=== PATIENT | male | born 1975 | race Caucasian/White ===

== ENCOUNTER 2023-03-14 17:34 | Inpatient (IN) | payer OTHER, BC ==
[~2023-03-14 17:34] MED LIST: Iopamidol-370 76% 500 ML MDV (1 ML CHARGE) ONE
[2023-03-14] MEDS ORDERED: hydrALAZINE 20 MG/ML VIAL SLOW IVP PRN (17:44)
[2023-03-14] MEDS ORDERED: Morphine 2 MG/ML VIAL SLOW IVP PRN (17:44)
[2023-03-14] MEDS ORDERED: Sodium Chloride 0.9% 1,000 ML IV SCH (17:45)
[2023-03-14] MEDS ORDERED: traMADol HCl 50 MG TAB PO PRN (17:52)
[2023-03-14 18:04] LABS: #Basophils 0.1 thou/uL (0.0-0.2); #Eosinphils 0.1 thou/uL (0.0-0.7); #Monocytes 0.8 thou/uL (0.11-0.59); #Neutrophils 7.9 thou/uL (1.40-6.50); %Basophils 0.7 % (0.0-1.0); %Lymphocytes 14.6 % (21.0-51.0); %Monocytes 7.9 % (0.0-10.0); %Neutrophils 75.2 % (42.0-75.0); Hemoglobin 13.5 g/dL (14.0-18.0); Mean Corpuscular HGB CONC 32.8 g/dL (32.0-36.0); Mean Corpuscular Hemoglobin 27.9 pg (27.0-31.0); Mean Corpuscular Volume 85.1 fl (78.0-98.0); Mean Platelet Volume 10.1 fL (7.4-10.4); Platelet Count 191 10x3/uL (130-400); RBC Distribution Width 12.6 % (11.5-14.5); Red Blood Cell (RBC) Count 4.84 mill/uL (4.70-6.10); White Blood Cell (WBC) Count 10.5 10x3/uL (4.8-10.8)
[2023-03-14] MEDS ORDERED: Boostrix 0.5 ML (Tdap) VIAL (>/=7 yrs of age) ONE (18:06)
[2023-03-14] MEDS ORDERED: Acetaminophen 500 MG TAB PO SCH (18:15)
[2023-03-14 18:17] LABS: INR-International Normal Ratio 0.9; Prothrombin Time 12.2 sec (12.0-14.7)
[2023-03-14 18:18] LABS: PTT 21.2 sec (22.9-36.1)
[2023-03-14 18:28] LABS: ALT (SGPT) 42 U/L (8-55); AST (SGOT) 32 U/L (5-34); Albumin 4.3 g/dL (3.5-5.0); Alkaline Phosphatase 48 U/L (40-110); Anion Gap 15 mmol/L (10-20); BUN (Urea Nitrogen) 18 mg/dL (8.9-20.6); Bilirubin, Total 0.8 mg/dL (0.2-1.2); CK (CPK) 405 U/L (30-200); Calc. Creatinine Clearance 0 mL/min (70-130); Calcium 9.3 mg/dL (7.8-10.44); Carbon Dioxide 18 mmol/L (22-29); Chloride 108 mmol/L (98-107); Estimated GFR 76; Globulin 2.5 g/dL (2.4-3.5); Glucose 140 mg/dL (70-105); Potassium 3.7 mmol/L (3.5-5.1); Protein, Total 6.8 g/dL (6.0-8.3); Sodium 137 mmol/L (136-145)
[2023-03-14] MEDS ORDERED: Ondansetron PF 4 MG/2 ML Vial ONE (18:28)
[2023-03-14] MEDS ORDERED: fentaNYL 50 mcg/mL 1 mL Vial ONE ×2 (18:28)
[2023-03-14] MEDS ORDERED: Ketamine In 0.9 % NaCl 50 MG/5 ML SYRINGE ONE (19:22)
[2023-03-14] MEDS ORDERED: Ketorolac Tromethamine 30 MG/ML VIAL ONE (19:43)
[2023-03-14] MEDS: traMADol HCl 50 MG TAB PO SCH ×2 (21:34→23:28)
[2023-03-14] MEDS: Lactated Ringer's 1,000 ML IV SCH (21:36)
[2023-03-14] MEDS: Cyclobenzaprine 10 MG TAB PO PRN (21:37)
[2023-03-14] MEDS: Gabapentin 300 MG CAP PO SCH (21:37)
[2023-03-14] MEDS: Famotidine 20 MG TAB PO SCH (21:37)
[2023-03-14] MEDS: Senokot S 8.6-50 MG TAB PO SCH (21:38)
[2023-03-14 21:57] VITALS: BMI 39.5
[2023-03-14] MEDS: Morphine 4 MG/ML VIAL SLOW IVP PRN (23:25)
[2023-03-14] MEDS: Acetaminophen 500 MG TAB PO SCH (23:31)
[2023-03-15] MEDS: Lactated Ringer's 1,000 ML IV SCH ×2 (04:21→14:54)
[2023-03-15 05:28] LABS: #Eosinphils 0.1 thou/uL (0.0-0.7); #Monocytes 0.7 thou/uL (0.11-0.59); #Neutrophils 4.7 thou/uL (1.40-6.50); %Basophils 0.4 % (0.0-1.0); %Eosinophils 1.3 % (0.0-10.0); %Lymphocytes 19.7 % (21.0-51.0); %Monocytes 10.5 % (0.0-10.0); Hemoglobin 11.9 g/dL (14.0-18.0); Mean Corpuscular HGB CONC 32.3 g/dL (32.0-36.0); Mean Corpuscular Hemoglobin 27.7 pg (27.0-31.0); Mean Corpuscular Volume 85.8 fl (78.0-98.0); Platelet Count 162 10x3/uL (130-400); RBC Distribution Width 13.1 % (11.5-14.5); Red Blood Cell (RBC) Count 4.29 mill/uL (4.70-6.10)
[2023-03-15 05:43] LABS: INR-International Normal Ratio 0.9; PTT 23.7 sec (22.9-36.1); Prothrombin Time 12.7 sec (12.0-14.7)
[2023-03-15] MEDS: traMADol HCl 50 MG TAB PO SCH ×2 (05:50→14:55)
[2023-03-15] MEDS: Acetaminophen 500 MG TAB PO SCH ×2 (05:50→14:54)
[2023-03-15 06:30] LABS: Anion Gap 13 mmol/L (10-20); BUN (Urea Nitrogen) 18 mg/dL (8.9-20.6); CK (CPK) 960 U/L (30-200); Calc. Creatinine Clearance 188 mL/min (70-130); Calcium 8.5 mg/dL (7.8-10.44); Carbon Dioxide 25 mmol/L (22-29); Chloride 105 mmol/L (98-107); Estimated GFR 94; Glucose 142 mg/dL (70-105); Potassium 3.8 mmol/L (3.5-5.1); Sodium 139 mmol/L (136-145)
[2023-03-15] MEDS: Morphine 4 MG/ML VIAL SLOW IVP PRN (08:30)
[2023-03-15] MEDS: Famotidine 20 MG TAB PO SCH ×2 (08:32→20:12)
[2023-03-15] MEDS: Gabapentin 300 MG CAP PO SCH ×3 (08:32→20:12)
[2023-03-15] MEDS: Senokot S 8.6-50 MG TAB PO SCH ×2 (08:33→20:11)
[2023-03-15] MEDS: Polyethylene Glycol 3350 17 GM Packet PO SCH (08:33)
[2023-03-15] MEDS ORDERED: CEFAZOLIN 2 GM VIAL ONE (10:34)
[2023-03-15] MEDS ORDERED: Sodium Chloride 0.9% 100 ML ONE (10:34)
[2023-03-15] MEDS ORDERED: Bupivacaine HCl 0.5%/Epinephrine 1:200,000/PF 30 ml Vial ONE (10:50)
[2023-03-15] MEDS ORDERED: Famotidine/PF 20 mg/2ml Vial ONE (10:56)
[2023-03-15] MEDS ORDERED: Lidocaine 1% PF 5 ML VIAL ONE (11:10)
[2023-03-15] MEDS ORDERED: Dexamethasone 20 MG/5 ML VIAL ONE (11:10)
[2023-03-15] MEDS ORDERED: PHENYLEPHRINE-NS 100 MCG/ML 10 ML SYRINGE ONE (11:10)
[2023-03-15] MEDS ORDERED: Rocuronium Bromide 10 MG/ML (10ML VIAL) ONE ×2 (11:10)
[2023-03-15] MEDS ORDERED: PROPOFOL 200 MG/20 ML VIAL ONE (11:10)
[2023-03-15] MEDS ORDERED: HYDROmorphone 2 MG/ML VIAL ONE (11:50)
[2023-03-15] MEDS ORDERED: SUGAMMADEX SODIUM 200 MG/2 ML VIAL ONE (12:44)
[2023-03-15] MEDS ORDERED: fentaNYL 50 mcg/mL 1 mL Vial ONE ×2 (13:24→14:08)
[2023-03-15] MEDS ORDERED: HYDROmorphone 2 MG/ML VIAL SLOW IVP PRN (13:27)
[2023-03-15] MEDS ORDERED: Promethazine HCl 25 MG/ML VIAL IM PRN (13:27)
[2023-03-15] MEDS ORDERED: PACU-Morphine 4MG/ML VIAL SLOW IVP PRN (13:27)
[2023-03-15] MEDS ORDERED: Ondansetron HCl/PF 4 MG/2 ML Vial IVP PRN (13:27)
[2023-03-15] MEDS ORDERED: PHARMACY TO RENALLY ADJUST ABX FS SCH (13:30)
[2023-03-15] MEDS ORDERED: Morphine 2 MG/ML VIAL ONE ×2 (13:55→14:02)
[2023-03-15] MEDS: Cyclobenzaprine 10 MG TAB PO PRN (14:35)
[2023-03-15] MEDS ORDERED: Acetaminophen/Codeine 30-300mg Tablet PO PRN (15:46)
[2023-03-15] MEDS ORDERED: Ketorolac Tromethamine 30 MG/ML VIAL IVP SCH (16:15)
[2023-03-15] MEDS ORDERED: Acetaminophen/Codeine 30-300mg Tablet PO SCH (18:00)
[2023-03-15] MEDS ORDERED: Acetaminophen 325 MG TAB PO SCH (18:00)
[2023-03-15] MEDS: Acetaminophen/Codeine 30-300mg Tablet PO SCH ×2 (18:05→22:44)
[2023-03-15] MEDS: Aspirin 81 mg Enteric Coated Tablet PO SCH (20:12)
[2023-03-15] MEDS: CEFAZOLIN 2 GM in Sodium Chloride 0.9% 100 ML IVPB SCH (20:12)
[2023-03-15] MEDS: Ketorolac Tromethamine 30 MG/ML VIAL IVP SCH (22:43)
[2023-03-16] MEDS: Ketorolac Tromethamine 30 MG/ML VIAL IVP SCH ×3 (00:36→11:21)
[2023-03-16] MEDS: CEFAZOLIN 2 GM in Sodium Chloride 0.9% 100 ML IVPB SCH (04:02)
[2023-03-16] MEDS: Cyclobenzaprine 10 MG TAB PO PRN (04:04)
[2023-03-16 05:46] LABS: #Monocytes 0.8 thou/uL (0.11-0.59); #Neutrophils 6.5 thou/uL (1.40-6.50); %Basophils 0.2 % (0.0-1.0); %Eosinophils 0.1 % (0.0-10.0); %Lymphocytes 13.6 % (21.0-51.0); %Neutrophils 76.7 % (42.0-75.0); Hemoglobin 11.4 g/dL (14.0-18.0); Mean Corpuscular HGB CONC 31.8 g/dL (32.0-36.0); Mean Corpuscular Hemoglobin 27.9 pg (27.0-31.0); Mean Corpuscular Volume 87.5 fl (78.0-98.0); Mean Platelet Volume 10.1 fL (7.4-10.4); Platelet Count 153 10x3/uL (130-400); RBC Distribution Width 12.8 % (11.5-14.5); Red Blood Cell (RBC) Count 4.09 mill/uL (4.70-6.10); White Blood Cell (WBC) Count 8.5 10x3/uL (4.8-10.8)
[2023-03-16] MEDS: Acetaminophen/Codeine 30-300mg Tablet PO SCH ×2 (06:06→13:10)
[2023-03-16 06:46] LABS: Bacteria/HPF None Seen HPF (None Seen); Bilirubin Negative (Negative); Blood, Urine Negative (Negative); CAUTI Indications for Culture Dysuria,urgency,freq; Clarity Clear (Clear); Glucose, Urine (Dipstick) 100 mg/dL (Negative); Ketone, Urine Trace mg/dL (Negative); Leukocyte Negative Leu/uL (Negative); Nitrite Negative (Negative); Protein, Urine (Dipstick) 10 mg/dL (Neg-Trace); RBC/HPF 0-3 HPF (0-3); Specific Gravity, Urine 1.035 (1.002-1.036); Squamous Epithelial 0-3 HPF (0-3); Urobilinogen Normal mg/dL (Less than 2); WBC/HPF 0-3 HPF (0-3)
[2023-03-16] MEDS ORDERED: Sodium Chloride 0.9% 1,000 ML IV SCH (07:15)
[2023-03-16] MEDS: Polyethylene Glycol 3350 17 GM Packet PO SCH (07:59)
[2023-03-16] MEDS: Aspirin 81 mg Enteric Coated Tablet PO SCH (08:00)
[2023-03-16] MEDS: Senokot S 8.6-50 MG TAB PO SCH (08:00)
[2023-03-16] MEDS: Famotidine 20 MG TAB PO SCH (08:00)
[2023-03-16] MEDS: Gabapentin 300 MG CAP PO SCH (08:00)
[2023-03-16] MEDS ORDERED: Tamsulosin HCl 0.4 MG CAP PO SCH (09:00)
[2023-03-16 09:04] LABS: Urine Culture Reflex No No
[2023-03-16 11:57] VITALS: BP 115/67; TEMP 98.3
== END 2023-03-16 13:50 | disposition home or self-care (01) | DRG 494 ==
LOC: ERS 17:34 → SJJU 17:53
PROVIDERS: ADMIT Surgery; ATTEND Surgery
PROC: 0QSG04Z Reposition Right Tibia with Internal Fixation Device, Open Approach (ICD-10-PCS; principal; 2023-03-15)
DX: S82.841A Displaced bimalleolar fracture of right lower leg, initial encounter for closed fracture (principal); K21.9 Gastro-esophageal reflux disease without esophagitis; K29.70 Gastritis, unspecified, without bleeding; S42.191A Fracture of other part of scapula, right shoulder, initial encounter for closed fracture; W55.22XA Struck by cow, initial encounter; Y92.79 Other farm location as the place of occurrence of the external cause; Z98.890 Other specified postprocedural states; Z23 Encounter for immunization; Z79.899 Other long term (current) drug therapy
CPT/HCPCS: 27818; 36415; 36416; 70450; 71260; 72125; 74177; 80048; 80053; 81001; 82550; 84484; 85025; 85610; 85730; 86850; 86900; 86901; 90471; 90715; 93005; 96374; 96375; 99152; 99153; C1713; G0390; J1100; J1170; J1650; J1885; J2270; J2272; J2405; J2704; J3010; J3490; J7050; J7120; Q9967; S0028